=== PATIENT | female | born 1960 | race Caucasian/White ===

== ENCOUNTER 2019-01-30 17:17 | Observation (INO) | payer BC ==
[2019-01-30 17:49] LABS: #Basophils 0.1 thou/uL (0.0-0.2); #Eosinphils 0.4 thou/uL (0.0-0.7); #Lymphocytes 3.1 thou/uL (1.20-3.40); #Monocytes 0.9 thou/uL (0.11-0.59); #Neutrophils 9.5 thou/uL (1.40-6.50); %Basophils 0.8 % (0.0-1.0); %Eosinophils 2.5 % (0.0-10.0); %Lymphocytes 22.1 % (21.0-51.0); %Monocytes 6.5 % (0.0-10.0); %Neutrophils 68.2 % (42.0-75.0); Mean Corpuscular HGB CONC 33.5 g/dL (32.0-36.0); Mean Corpuscular Hemoglobin 29.7 pg (27.0-31.0); Mean Corpuscular Volume 88.6 fL (78.0-98.0); Mean Platelet Volume 8.1 fL (7.4-10.4); Platelet Count 320 thou/uL (130-400); Red Blood Cell (RBC) Count 4.72 mill/uL (4.20-5.40)
--- NOTE | 2019-01-30 17:52 | RAD ---
RADIOGRAPH CHEST 1 VIEW: DATE: 01/30/2019 HISTORY: 58-year-old female with chest pain FINDINGS: There are no airspace densities, pulmonary edema, pneumothorax, or cardiomegaly. The lateral costophr enic angles are sharp. IMPRESSION: No acute cardiopulmonary findings.
[2019-01-30 18:12] LABS: ALT (SGPT) 15 U/L (8-55); AST (SGOT) 17 U/L (5-34); Alkaline Phosphatase 97 U/L (40-150); Anion Gap 14 mmol/L (10-20); BUN (Urea Nitrogen) 15 mg/dL (9.8-20.1); Bilirubin, Total 0.6 mg/dL (0.2-1.2); CK (CPK) 69 U/L (29-168); Calc. Creatinine Clearance 0 mL/min (70-130); Calcium 10.3 mg/dL (7.8-10.44); Carbon Dioxide 28 mmol/L (22-29); Chloride 98 mmol/L (98-107); Estimated GFR-MDRD Greater than 90; Globulin 2.5 g/dL (2.4-3.5); Glucose 94 mg/dL (70-105); Lipase 7 U/L (8-78); Potassium 3.5 mmol/L (3.5-5.1); Protein, Total 6.5 g/dL (6.0-8.3); Sodium 136 mmol/L (136-145)
[2019-01-30 20:19] LABS: Troponin I Less than 0.010 ng/mL (< 0.028)
[2019-01-30 20:24] VITALS: BMI 43.9
[2019-01-30] MEDS ORDERED: Ondansetron PF 4 MG/2 ML Vial IVP PRN (20:35)
[2019-01-30] MEDS ORDERED: Acetaminophen 325 MG TAB PO PRN (20:35)
[2019-01-30] MEDS ORDERED: Ondansetron ODT 4 MG TAB SL PRN (20:35)
[2019-01-30] MEDS ORDERED: HYDROcodone/Acetaminophen 5/325 mg Tablet PO PRN (20:36)
[2019-01-30 21:17] LABS: Bilirubin Negative (Negative); Blood, Urine Negative (Negative); Clarity CLEAR (Clear); Glucose, Urine (Dipstick) Negative (Negative); Leukocyte Trace (Negative); Nitrite Negative (Negative); Protein, Urine (Dipstick) Negative (Neg-Trace); Specific Gravity, Urine 1.006 (1.002-1.036); Urobilinogen 0.2 mg/dL (0.2-1.0)
[2019-01-30 21:19] LABS: Bacteria/HPF Rare-Few HPF (None Seen); Hyaline Casts/LPF 0-3 HYALINE CAST LPF (0-3 Hyaline); RBC/HPF 0-3 HPF (0-3); Squamous Epithelial 0-3 HPF (0-3)
[2019-01-30 21:21] LABS: Urine Culture Reflex Yes Yes
[2019-01-30] MEDS: Famotidine 20 MG TAB PO SCH (21:58)
[2019-01-31 00:15] LABS: Troponin I Less than 0.010 ng/mL (< 0.028)
--- NOTE | 2019-01-31 00:58 | HP ---
PRIMARY CARE PHYSICIAN: Out of town physician. CHIEF COMPLAINT: Chest pain. HISTORY OF PRESENT ILLNESS: Ms. 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 The patient reports pain radiated to her upper back, to her neck, lateral head and eyes. Reports that it went on both sides of her neck, lasted for about an hour and a half. EMS when I got there, gave her some nitroglycerin and some aspirin. Her pain improved. The patient reports the pain lasted a total of about an hour to hour and a half and then stopped after medications. The patient reports some nausea. Denies any diaphoresis. Reports some lack of appetite. She denied any shortness of breath, productive cough, or history of COPD. She is a smoker. She denied any abdominal pain. Does report taking medications for blood pressure, is unsure about cholesterol status. Denies any thyroid or diabetes. She does report a past medical history pertinent for PE in 2003. The patient checked D-dimer while in the emergency room, which was negative. EKG shows normal sinus rhythm, beats per minute 74 with no ectopics. The patient does report some family history of cardiac disease. Reports her mother of a heart attack. Based on symptoms and family history, the patient is admitted to the observation unit for further management and risk stratification. REVIEW OF SYSTEMS: The patient reports chest pain. Denies dyspnea. Denies dyspnea on exertion. Denies cough. Does report some appetite changes, some nausea. Denies abdominal pain. Denies diarrhea or vomiting. Denies dizziness. Does report some vague fatigue over the last several days. Does deny chest pain with exertion. Reports she was at rest when the pain started. All review of systems reviewed and are negative unless mentioned in the HPI. PAST MEDICAL HISTORY: Hypertension. Had a pulmonary emboli in 2003, she reports at that time that she did have a cardiac cath which she reports okay. Denied any intervention at that point. PAST SURGICAL HISTORY: Tubal ligation and cardiac cath. PSYCHIATRIC HISTORY: None. SOCIAL HISTORY: The patient lives at home with her family. She drinks socially. Denies any drug use. Does smoke. Reports that she smokes 2-3 cigarettes a day, but has smoked at least a pack a day up until 2 months ago. Reports that she has switched of vaping 2 weeks ago. ALLERGIES: CODEINE. CURRENT MEDICATIONS: 1. Hydrochlorothiazide 25 mg p.o. b.i.d. 2. Flexeril 10 mg p.o. q.8 hours as needed for muscle spasms. PHYSICAL EXAMINATION: VITAL SIGNS: Blood pressure 117/48, pulse is 72, respirations 20, temperature is 98.5, pO2 sats are 94% on room air. CONSTITUTIONAL: The patient appears in no distress. She is alert and oriented to person, place and time. HEENT: Head is atraumatic and normocephalic. Eyes; eyelids are normal to inspection. Pupils equally round and reactive to light. Extraocular muscles are intact. ENT; mucous membranes are moist. Mouth exam is normal. NECK: Normal range of motion. No tenderness. RESPIRATORY/CHEST: Breath sounds are clear. There is no wheezing or rales. CARDIOVASCULAR: Regular heart rate and rhythm. Heart sounds are normal. ABDOMEN: Nontender. Bowel sounds are heard. BACK: Normal inspection. No tenderness. EXTREMITIES: Upper extremity, inspection normal. Radial pulses normal. No edema. Lower extremity, normal inspection. No tenderness. Pedal pulses normal. No edema is noted. NEURO: The patient is alert and oriented to person, place, and time. Speech is normal. SKIN: Warm, dry. Normal in color. PERTINENT LABORATORY DATA: Troponin x3 negative. Chemistry unremarkable. Coag, D-dimer was less than 0.27. Hematology; white blood cell count is 14, hemoglobin is 14, hematocrit is 41.8, and platelet count is 320. ASSESSMENT AND PLAN: 1. Chest pain. Troponins x3 have been negative. EKG, no changes. We will order a stress test in the morning. Check a fasting lipid. Order a TSH. 2. Hypertension. We will restart home medications. We will monitor. 3. Deep vein thrombosis and gastrointestinal prophylaxis have been started. Hospital course will be dependent on clinical findings. Job ID: [id number]
[2019-01-31 05:47] LABS: #Basophils 0.1 thou/uL (0.0-0.2); #Eosinphils 0.4 thou/uL (0.0-0.7); #Lymphocytes 2.9 thou/uL (1.20-3.40); #Monocytes 0.8 thou/uL (0.11-0.59); #Neutrophils 6.5 thou/uL (1.40-6.50); %Basophils 1.1 % (0.0-1.0); %Eosinophils 3.6 % (0.0-10.0); %Lymphocytes 27.4 % (21.0-51.0); %Monocytes 7.3 % (0.0-10.0); %Neutrophils 60.6 % (42.0-75.0); Hemoglobin 13.8 g/dL (12.0-16.0); Mean Corpuscular Hemoglobin 29.6 pg (27.0-31.0); Mean Corpuscular Volume 89.7 fL (78.0-98.0); Mean Platelet Volume 8.4 fL (7.4-10.4); Platelet Count 300 thou/uL (130-400); Red Blood Cell (RBC) Count 4.66 mill/uL (4.20-5.40); White Blood Cell (WBC) Count 10.7 thou/uL (4.8-10.8)
[2019-01-31 06:12] LABS: Anion Gap 13 mmol/L (10-20); BUN (Urea Nitrogen) 14 mg/dL (9.8-20.1); Calc. Creatinine Clearance 187 mL/min (70-130); Calcium 9.9 mg/dL (7.8-10.44); Carbon Dioxide 27 mmol/L (22-29); Cardiac Risk 4.2 (Less than 4.5); Chloride 102 mmol/L (98-107); Cholesterol 173 mg/dl (< 200 Desired); Estimated GFR-MDRD Greater than 90; Glucose 96 mg/dL (70-105); HDL Cholesterol 41 mg/dL (>60 Neg Risk); LDL Cholesterol, Calculated 112 mg/dL; Potassium 3.3 mmol/L (3.5-5.1); Sodium 139 mmol/L (136-145); Triglycerides 101 mg/dL (Less than 150)
[2019-01-31] MEDS: Famotidine 20 MG TAB PO SCH (08:59)
[2019-01-31] MEDS ORDERED: Aspirin 81 mg Enteric Coated Tablet PO SCH (09:00)
[2019-01-31] MEDS ORDERED: Enoxaparin Sodium 40 MG/0.4 ML SYRINGE SC SCH (09:00)
[2019-01-31] MEDS ORDERED: Cyclobenzaprine 10 MG TAB PO PRN (11:46)
[2019-01-31 11:47] VITALS: BP 116/53; TEMP 97.6
[2019-01-31] MEDS ORDERED: Hydrochlorothiazide 25 MG TAB PO SCH (12:00)
--- NOTE | 2019-01-31 12:46 | NM ---
Exam: Nuclear medicine cardiac SPECT, stress only with EF and wall motion HISTORY: Chest pain, status post heart catheterization, history of PE, hypertension, smoking history This is a Lexiscan study. Patient was injected with 30.1 mCi technetium 99m sestamibi intravenously for stress images FINDINGS: No scan evidence for infarct or ischemia. LHR: 0.32 EDV: 85 mL Ejection fraction: 75% Wall motion: Normal IMPRESSION: Unremarkable cardiac SPECT stress only with ejection fraction and wall motion.
--- NOTE | 2019-01-31 23:44 | DIS ---
DATE OF ADMISSION: 01/30/2019 DATE OF DISCHARGE: 01/31/2019 CHIEF COMPLAINT ON ADMISSION: Chest pain. DISCHARGE DIAGNOSES: 1. Chest pain, acute coronary syndrome ruled out, nuclear stress test negative for reversible ischemia. 2. Tobacco abuse. 3. Hypertension. BRIEF HOSPITAL COURSE: The patient is a pleasant 58-year-old female, who has past medical history significant for tobacco abuse and hypertension, who presented to the hospital with complaints of chest pain. 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 She states that it seemed to radiate from her chest up into her back of her head, as well as her back and neck. The pain seemed to go on for about an hour and hour and a half. She did have some associated nausea but denied any diaphoresis, shortness of breath, or dizziness. She was brought to [facility] for further workup and chest pain rule out. Her serial troponins were negative. She did undergo nuclear stress test, which showed no evidence of reversible ischemia and normal left ventricular systolic function. She has had no recurrence of her chest pain. Her blood pressure has been well controlled. Her D-dimer was negative. Rest of her lab work was largely unremarkable. She has no complaints at this time. She denies any chest pain, shortness of breath, nausea or vomiting. DISCHARGE DISPOSITION: Home. DISCHARGE CONDITION: Stable. DISCHARGE INSTRUCTIONS AND FOLLOWUP: I have counseled the patient extensively on the importance of tobacco cessation. We discussed many options for quitting. The patient is currently trying to cut down by using vape. I have also explained the dangers of this since it still contains nicotine. She will continue aggressive risk factor modifications. Her cholesterol was all within normal limits, but she will continue her antihypertensives and monitor her blood pressure at home. She will follow up with her primary care physician as well. She will return to the ER with any return of symptoms. The care of this patient has been discussed with Dr. Amato, who agrees with the above. Job ID: [id number]
[2019-02-01] MEDS ORDERED: Hydrochlorothiazide 25 MG TAB PO SCH (09:00)
== END 2019-01-31 14:18 | disposition home or self-care (01) ==
LOC: ERS 17:17 → 2SW 18:45
PROVIDERS: ADMIT Family Medicine; ATTEND Family Medicine
DX: R07.9 Chest pain, unspecified (principal); I10 Essential (primary) hypertension; F17.210 Nicotine dependence, cigarettes, uncomplicated; F17.290 Nicotine dependence, other tobacco product, uncomplicated; Z79.899 Other long term (current) drug therapy; Z88.6 Allergy status to analgesic agent
CPT/HCPCS: 36415; 71045; 78452; 80048; 80053; 80061; 81001; 82550; 83690; 84443; 84484; 85025; 85379; 87086; 93005; 93017; 96372; 99406; A9500; G0378; J0153; J1650